=== PATIENT | female | born 1975 | race Caucasian/White ===

== ENCOUNTER 2024-07-08 20:32 | Emergency (ER) | payer MEDICAID, OTHER ==
[~2024-07-08] VITALS: Ht 162.6 cm; Wt 84.0 kg
[2024-07-08 20:43] VITALS: O2SAT 97
[2024-07-08] MEDS ORDERED: AMOX1TAB16 MT (21:37)
[2024-07-08 22:00] VITALS: BP 128/77; PULSE 65; RESP 17; TEMP 36.78072; O2SAT 100
[2024-07-08] MEDS: TETANUS, DIPHTHERIA, PERTUSSIS VAC/PF 0.5ML (>10YR OLD) IM ONE (22:00)
[2024-07-08] MEDS: BACITRACIN ZINC OINT UDPKT TOP ONE (22:00)
== END 2024-07-08 22:01 | disposition home or self-care (01) ==
LOC: ER 20:32
DX: S61.031A Puncture wound without foreign body of right thumb without damage to nail, initial encounter (principal); E78.00 Pure hypercholesterolemia, unspecified; W54.0XXA Bitten by dog, initial encounter; Y93.89 Activity, other specified; Y92.89 Other specified places as the place of occurrence of the external cause; Y99.8 Other external cause status
CPT/HCPCS: 90715; 90471; 99283; Z7610